=== PATIENT | female | born 1935 | race Caucasian/White ===

== ENCOUNTER 2018-02-24 20:31 | Observation (INO) | payer MEDICARE ==
[2018-02-24] MEDS ORDERED: ASPIRIN 81 MG TABLET, CHEWABLE PO ONE (20:49)
[2018-02-24 20:59] LABS: ABSOLUTE EOSINOPHILS # (AUTO) 0.3 10^3/uL (0.0-0.6); ABSOLUTE LYMPHOCYTES (AUTO) 2.4 10^3/uL (0.5-4.7); ABSOLUTE MONOCYTES (AUTO) 0.5 10^3/uL (0.1-1.4); ABSOLUTE NEUT (AUTO) 3.8 10^3/uL (1.7-8.2); BASOPHILS % (AUTO) 0.7 % (0-2); EOSINOPHILS % (AUTO) 4.5 % (0-6); HEMOGLOBIN 13.3 g/dL (12.0-15.5); LYMPHOCYTES % (AUTO) 33.4 % (13-45); MEAN CORPUSCULAR HEMOGLOBIN 34.1 pg (27.0-33.4); MEAN CORPUSCULAR HGB CONC 33.3 g/dL (32.0-36.0); MEAN CORPUSCULAR VOLUME 102 fl (80-97); MONOCYTES % (AUTO) 7.8 % (3-13); PLATELET COUNT 220 10^3/uL (150-450); SEGMENTED NEUTROPHILS % (AUTO) 53.6 % (42-78); TOTAL CELLS COUNTED % (AUTO) 100 %
--- NOTE | 2018-02-24 21:04 | ER Document Report ---
ED Cardiac - General Chief Complaint: Palpitations Stated Complaint: HEART PROBLEMS Time Seen by Provider: 02/24/18 20:52 Notes: Patient is an 83-year-old female comes emergency department for chief complaint of palpitations, she states she was sitting and reading when she started feeling her heart racing, she states she got a tingling feeling in her throat but she denies having chest pain, shortness of breath, nausea or vomiting. She denies syncope. She comes by EMS, was given 6 mg of adenosine, this converted her, she has been in sinus rhythm since her monitoring. She denies ever having this in the past, denies any cardiac history, reports history of hypertension and GERD, on Valsartan 320 mg. She denies any substance use. She denies any current symptoms. TRAVEL OUTSIDE OF THE [place] IN LAST 30 DAYS: No - Related Data Allergies/Adverse Reactions: Penicillins Allergy (Intermediate, Verified 02/25/18 02:11) Hives Sulfa (Sulfonamide Antibiotics) Allergy (Intermediate, Verified 02/25/18 02:12) Hives NSAIDS (Non-Steroidal Anti-Inflamma Adverse Reaction (Intermediate, Verified 02:13) Hives Past Medical History - General Information source: Patient - Social History Smoking Status: Never Smoker Frequency of alcohol use: None Drug Abuse: None Lives with: Family Family History: Reviewed & Not Pertinent - Past Medical History Cardiac Medical History: Reports: Hx Hypertension GI Medical History: Reports: Hx Gastroesophageal Reflux Disease - Immunizations Immunizations up to date: Yes Hx Diphtheria, Pertussis, Tetanus Vaccination: Yes Review of Systems - Review of Systems Constitutional: No symptoms reported EENT: No symptoms reported Cardiovascular: See HPI Respiratory: No symptoms reported Gastrointestinal: No symptoms reported Genitourinary: No symptoms reported Female Genitourinary: No symptoms reported Musculoskeletal: No symptoms reported Skin: No symptoms reported Hematologic/Lymphatic: No symptoms reported Neurological/Psychological: No symptoms reported Physical Exam - Vital signs Vitals: Temp 98.5 F 02/24/18 20:47 Interpretation: Normal - General General appearance: Appears well, Alert In distress: None - HEENT Head: Normocephalic, Atraumatic Eyes: Normal Pupils: PERRL - Respiratory Respiratory status: No respiratory distress Chest status: Nontender Breath sounds: Normal. No: Decreased air movement, Wheezing Chest palpation: Normal - Cardiovascular Rhythm: Regular. No: Irregularly irregular, Extrasystoles, Tachycardia Heart sounds: Normal auscultation, S1 appreciated, S2 appreciated Murmur: No Normal capillary refill: Yes - Abdominal Inspection: Normal Distension: No distension Bowel sounds: Normal Tenderness: Nontender. No: Tender, Guarding Organomegaly: No organomegaly - Back Back: Normal, Nontender - Extremities General upper extremity: Normal inspection, Nontender, Normal color, Normal ROM , Normal temperature General lower extremity: Normal inspection, Nontender, Normal color, Normal ROM , Normal temperature, Normal weight bearing. No: Chucho's sign - Neurological Neuro grossly intact: Yes Cognition: Normal Orientation: AAOx4 Bong Coma Scale Eye Opening: Spontaneous Bong Coma Scale Verbal: Oriented Bong Coma Scale Motor: Obeys Commands Bong Coma Scale Total: 15 Speech: Normal Motor strength normal: LUE, RUE, LLE, RLE Sensory: Normal - Psychological Associated symptoms: Normal affect, Normal mood - Skin Skin Temperature: Warm Skin Moisture: Dry Skin Color: Normal Course - Re-evaluation Re-evalutation: EMS reports that patient had an SVT with a rate of 198 that they were able to convert her using 6 mg of adenosine. This seems unlikely for patient at the age of 83 who has no previous history of SVT. EKG showing no T-wave inversions or ST segment changes in consecutive leads. CBC, chemistry, TSH, magnesium, and initial troponin all unremarkable. Patient has remained asymptomatic in sinus rhythm during her monitoring in the emergency department. Discussed with Dr. Nolasco, I was able to obtain the EMS EKG and there is concern for some widening and possibly patient having ventricular tachycardia based on this image. This seems more likely based on her age and described symptoms. As a result patient will be discussed with hospitalist for potential admission, discussed this with patient and family, they state agreement with this plan. Discussed with Dr. Drake, internal medicine, patient will be admitted to [facility] observation. - Vital Signs Vital signs: Temp Pulse Resp BP Pulse Ox 98.1 F 70 16 141/58 H 100 02/25/18 04:05 02/25/18 04:05 02/25/18 04:05 02/25/18 04:05 02/25/18 04:05 - Laboratory Result Diagrams: 02/24/18 20:40 02/25/18 02:47 Laboratory results interpreted by me: 02/24/18 02/24/18 20:40 20:40 MCV 102 H MCH 34.1 H RDW 16.0 H Glucose 138 H Discharge - Discharge Clinical Impression: Palpitations, Ventricular tachycardia Condition: Stable Disposition: ADMITTED OBSERVATION Admitting Provider: Hospitalist Unit Admitted: [facility]
[2018-02-24 21:09] LABS: ALANINE AMINOTRANSFERASE 27 U/L (9-52); ALBUMIN 4.4 g/dL (3.5-5.0); ALKALINE PHOSPHATASE 44 U/L (38-126); ANION GAP 11 (5-19); ASPARTATE AMINO TRANSFERASE 24 U/L (14-36); BILIRUBIN,DIRECT 0.2 mg/dL (0.0-0.4); BILIRUBIN,TOTAL 0.2 mg/dL (0.2-1.3); BLOOD UREA NITROGEN 17 mg/dL (7-20); CALCIUM 10.2 mg/dL (8.4-10.2); CARBON DIOXIDE 30 mmol/L (22-30); CHLORIDE 102 mmol/L (98-107); CREATINE KINASE 31 U/L (30-135); GLUCOSE 138 mg/dL (75-110); POTASSIUM 4.3 mmol/L (3.6-5.0); TOTAL PROTEIN 7.2 g/dL (6.3-8.2)
[2018-02-24 21:21] LABS: CREATINE KINASE MB 0.69 ng/mL (<4.55)
[2018-02-24 21:25] LABS: TROPONIN I < 0.012 ng/mL
--- NOTE | 2018-02-24 21:31 | RADIOLOGY REPORT (SQ) ---
EXAM DESCRIPTION: CHEST SINGLE VIEW COMPLETED DATE/TIME: 02/24/2018 9:09 pm REASON FOR STUDY: palpitations COMPARISON: None. EXAM PARAMETERS: NUMBER OF VIEWS: One view. TECHNIQUE: Single frontal radiographic view of the chest acquired. RADIATION DOSE: NA LIMITATIONS: None. FINDINGS: LUNGS AND PLEURA: No opacities, masses or pneumothorax. No pleural effusion. MEDIASTINUM AND HILAR STRUCTURES: No masses. Contour normal. HEART AND VASCULAR STRUCTURES: Heart normal in size. Normal vasculature. BONES: No acute findings. HARDWARE: None in the chest. OTHER: No other significant finding. IMPRESSION: NO ACUTE RADIOGRAPHIC FINDING IN THE CHEST. TECHNICAL DOCUMENTATION: JOB ID: [id number]- All Rights Reserved Reading location - IP/workstation name: [email or web address]
[2018-02-25] MEDS ORDERED: MAGNESIUM HYDROXIDE SUSP 30 ML UDCUP PO PRN (00:17)
[2018-02-25] MEDS ORDERED: ACETAMINOPHEN 325 MG TABLET PO PRN (00:17)
[2018-02-25] MEDS ORDERED: METOPROLOL TARTRATE 25 MG TABLET PO ONE ×2 (00:30→04:15)
[2018-02-25] MEDS ORDERED: THIAMINE HCL 100 MG TABLET PO ONE (03:00)
[2018-02-25 03:08] LABS: ANION GAP 10 (5-19); BLOOD UREA NITROGEN 17 mg/dL (7-20); CALCIUM 10.1 mg/dL (8.4-10.2); CARBON DIOXIDE 30 mmol/L (22-30); CHLORIDE 107 mmol/L (98-107); CREATINE KINASE 30 U/L (30-135); GLUCOSE 115 mg/dL (75-110); POTASSIUM 4.1 mmol/L (3.6-5.0); SODIUM 146.5 mmol/L (137-145)
[2018-02-25 03:19] LABS: CREATINE KINASE MB 0.64 ng/mL (<4.55); TROPONIN I 0.041 ng/mL
--- NOTE | 2018-02-25 05:38 | PDOC H&P ---
History of Present Illness Admission Date/PCP: 02/24/18 23:18 SANDOR ANGELA NP Patient complains of: Palpitations History of Present Illness: GABY STREET is a 83 year old female with a past medical history of sinusitis , GERD and hypertension. Patient presents with 30 minutes of palpitations occurring while at rest without nausea vomiting chest pain or shortness of breath. EMS was called finding a heart rate in the 180s and a rhythm strip suggesting V. tach. She receives 6 mg of adenosine resulting in conversion to normal sinus rhythm. She is brought to the emergency room for evaluation where she is found to have an unremarkable workup and referred the hospitalist for observation. Patient denies previous episode. Denies recent change in medications. With exception to Norvasc which was discontinued 8 months ago. Patient otherwise feels well. Past Medical History Cardiac Medical History: Reports: Hyperlipidema, Hypertension GI Medical History: Reports: Hiatal Hernia, Peptic Ulcer Disease Psychiatric Medical History: Denies: Depression Social History Information Source: Patient Lives with: Alone Smoking Status: Never Smoker Frequency of Alcohol Use: None Hx Recreational Drug Use: No Drugs: None Hx Prescription Drug Abuse: No - Advance Directive Resuscitation Status: Full Code Family History Family History: Hypertension Parental Family History Reviewed: Yes Children Family History Reviewed: Yes Sibling(s) Family History Reviewed.: Yes Medication/Allergy Allergies/Adverse Reactions: Penicillins Allergy (Intermediate, Verified 02/25/18 02:11) Hives Sulfa (Sulfonamide Antibiotics) Allergy (Intermediate, Verified 02/25/18 02:12) Hives NSAIDS (Non-Steroidal Anti-Inflamma Adverse Reaction (Intermediate, Verified 02:13) Hives Review of Systems Constitutional: ABSENT: chills, fever(s), headache(s), weight gain, weight loss Eyes: ABSENT: visual disturbances Ears: ABSENT: hearing changes Cardiovascular: ABSENT: chest pain, dyspnea on exertion, edema, orthropnea, palpitations Respiratory: ABSENT: cough, hemoptysis Gastrointestinal: ABSENT: abdominal pain, constipation, diarrhea, hematemesis, hematochezia, nausea, vomiting Genitourinary: ABSENT: dysuria, hematuria Musculoskeletal: ABSENT: joint swelling Integumentary: ABSENT: rash, wounds Neurological: ABSENT: abnormal gait, abnormal speech, confusion, dizziness, focal weakness, syncope Psychiatric: ABSENT: anxiety, depression, homidical ideation, suicidal ideation Endocrine: ABSENT: cold intolerance, heat intolerance, polydipsia, polyuria Hematologic/Lymphatic: ABSENT: easy bleeding, easy bruising Physical Exam Vital Signs: Temp Pulse Resp BP Pulse Ox 98.1 F 70 16 141/58 H 100 02/25/18 04:05 02/25/18 04:05 02/25/18 04:05 02/25/18 04:05 02/25/18 04:05 Intake & Output 02/23/18 02/24/18 02/25/18 11:59 11:59 11:59 Weight 48.1 kg General appearance: PRESENT: no acute distress, well-developed, well-nourished Head exam: PRESENT: atraumatic, normocephalic Eye exam: PRESENT: conjunctiva pink, EOMI, PERRLA. ABSENT: scleral icterus Ear exam: PRESENT: normal external ear exam Mouth exam: PRESENT: moist, tongue midline Neck exam: ABSENT: carotid bruit, JVD, lymphadenopathy, thyromegaly Respiratory exam: PRESENT: clear to auscultation wood. ABSENT: rales, rhonchi, wheezes Cardiovascular exam: PRESENT: RRR. ABSENT: diastolic murmur, rubs, systolic murmur Pulses: PRESENT: normal dorsalis pedis pul Vascular exam: PRESENT: normal capillary refill GI/Abdominal exam: PRESENT: normal bowel sounds, soft. ABSENT: distended, guarding, mass, organolmegaly, rebound, tenderness Rectal exam: PRESENT: deferred Extremities exam: PRESENT: full ROM. ABSENT: calf tenderness, clubbing, pedal edema Neurological exam: PRESENT: alert, awake, oriented to person, oriented to place , oriented to time, oriented to situation, CN II-XII grossly intact. ABSENT: motor sensory deficit Psychiatric exam: PRESENT: appropriate affect, normal mood. ABSENT: homicidal ideation, suicidal ideation Skin exam: PRESENT: dry, intact, warm. ABSENT: cyanosis, rash Results Laboratory Results: 02/25/18 02:47 02/25/18 02:47 Sodium 146.5 H Potassium 4.1 Chloride 107 Carbon Dioxide 30 Anion Gap 10 BUN 17 Creatinine 0.77 Est GFR ( Amer) > 60 Est GFR (Non-Af Amer) > 60 Glucose 115 H Calcium 10.1 02/25/18 02/25/18 02:47 02:47 Creatine Kinase 30 CK-MB (CK-2) 0.64 Troponin I 0.041 Impressions: Chest X-Ray 02/24/18 20:49 IMPRESSION: NO ACUTE RADIOGRAPHIC FINDING IN THE CHEST. Assessment & Plan - Diagnosis (1) Ventricular tachycardia Is this a current diagnosis for this admission?: Yes Plan: No clear precipitating event. Telemetry monitoring Lopressor initiated, follow- up cardiac enzymes, TSH and cardiology consult (2) Palpitations Is this a current diagnosis for this admission?: Yes Plan: Secondary to #1. - Time Time Spent: 30 to 50 Minutes
[2018-02-25] MEDS: HEPARIN SOD (PORCINE) 5,000 UNIT/ML 1 ML SYRINGE SUBCUT SCH ×3 (05:59→21:50)
--- NOTE | 2018-02-25 07:45 | EKG REPORT ---
SEVERITY:- OTHERWISE NORMAL ECG - SINUS RHYTHM ATRIAL PREMATURE COMPLEX : Confirmed by: Terrance Augustin MD 25-Feb-2018 07:45:22
--- NOTE | 2018-02-25 07:46 | EKG REPORT ---
SEVERITY:- ABNORMAL ECG - SINUS RHYTHM PROBABLE LEFT ATRIAL ABNORMALITY PROBABLE LEFT VENTRICULAR HYPERTROPHY : Confirmed by: Terrance Augustin MD 25-Feb-2018 07:45:39
--- NOTE | 2018-02-25 07:46 | EKG REPORT ---
SEVERITY:- OTHERWISE NORMAL ECG - SINUS RHYTHM MINIMAL ST DEPRESSION, DIFFUSE LEADS : Confirmed by: Terrance Augustin MD 25-Feb-2018 07:45:50
[2018-02-25 09:38] LABS: CREATINE KINASE MB 0.81 ng/mL (<4.55); TROPONIN I 0.037 ng/mL
[2018-02-25] MEDS ORDERED: METOPROLOL TARTRATE 25 MG TABLET PO SCH (10:00)
[2018-02-25] MEDS: DOCUSATE SODIUM 100 MG CAPSULE PO SCH (10:09)
[2018-02-25] MEDS: THIAMINE HCL 100 MG TABLET PO SCH (10:09)
[2018-02-25] MEDS ORDERED: DIAZEPAM 2 MG TABLET PO PRN (10:47)
[2018-02-25] MEDS ORDERED: VALACYCLOVIR HCL 500 MG TABLET PO ONE (12:00)
[2018-02-25] MEDS ORDERED: (PENDING PHARMACY ID) (Ketotifen Fumarate [Refresh] 1 DROP) OU SCH (14:00)
[2018-02-25] MEDS: CARBOXYMETHYLCELLULOSE SOD 0.5% 0.4 ML DROPERETTE OU SCH ×2 (14:37→18:16)
[2018-02-25 15:39] LABS: CREATINE KINASE MB 0.92 ng/mL (<4.55); TROPONIN I 0.024 ng/mL
--- NOTE | 2018-02-25 18:43 | XCELERA REPORT ---
[address] [address] Transthoracic Echocardiogram Report Name: GABY STREET Age: 83 yrs Gender: Female : 1935 Patient Status: Inpatient Patient Location: [address] [place] [address] Study Date: 02/25/2018 02:41 PM Height: 63 in Weight: 106 lb BSA: 1.5 m2 Procedure: A complete two-dimensional transthoracic echocardiogram was performed (2D, M-mode, spectral and color flow Doppler). The study was technically adequate with some images being suboptimal in quality. Reason For Study: SVT Ordering Physician: MADELEINE EATON Performed By: Declan Maria Interpretation Summary The left ventricular ejection fraction is normal. Doppler measurements suggest pseudonormalized left ventricular relaxation, which is associated with grade II/IV or mild to moderate diastolic dysfunction There is mild concentric left ventricular hypertrophy. The left ventricle is grossly normal size. Wall motion cannot be accurately commented on, but no definite regional wall motion abnormalities noted. The right ventricular systolic function is normal. The right atrium is normal in size The left atrial size is normal. There is a trace to mild amount of mitral regurgitation There is no mitral valve stenosis. There is a mild amount of aortic regurgitation There is no aortic valve stenosis There is a mild amount of tricuspid regurgitation There is mild pulmonary hypertension by echo Right ventricular systolic pressure is estimated to be elevated at 30- 40mmHg. The aortic root is not well visualized but is probably normal size. The inferior vena cava appeared normal and decreased > 50% with respiration (RAP 5-10 mmHg) There is no pericardial effusion. MMode/2D Measurements & Calculations RVDd: 2.6 cm LVIDd: 3.5 cm FS: 32.0 % Ao root diam: 3.1 cm IVSd: 0.97 cm LVIDs: 2.4 cm EDV(Teich): 50.8 ml LVPWd: 1.1 cm ESV(Teich): 19.7 ml Ao root area: 7.6 cm2 EF(Teich): 61.3 % LA dimension: 2.6 cm Doppler Measurements & Calculations MV E max fifi: MV P1/2t max fifi: Ao V2 max: AI max fifi: 63.2 cm/sec 76.6 cm/sec 159.5 cm/sec 464.8 cm/sec MV A max fifi: MV P1/2t: 62.8 msec Ao max PG: AI max P.7 cm/sec 10.2 mmHg 86.4 mmHg MV E/A: 0.82 MVA(P1/2t): 3.5 cm2 AI dec slope: MV dec slope: 357.5 cm/sec2 251.0 cm/sec2 MV dec time: AI P1/2t: 0.26 sec 542.5 msec LV V1 max PG: PA V2 max: PI end-d fifi: TR max fifi: 3.3 mmHg 70.2 cm/sec 74.2 cm/sec 256.3 cm/sec LV V1 max: PA max P.0 mmHg TR max P.0 cm/sec 26.3 mmHg Left Ventricle The left ventricle is grossly normal size. There is mild concentric left ventricular hypertrophy. The left ventricular ejection fraction is normal. Doppler measurements suggest pseudonormalized left ventricular relaxation, which is associated with grade II/IV or mild to moderate diastolic dysfunction. Wall motion cannot be accurately commented on, but no definite regional wall motion abnormalities noted. Right Ventricle The right ventricle is normal in size, thickness and function. There is normal right ventricular wall thickness. The right ventricular systolic function is normal. Atria The right atrium is normal in size. The left atrial size is normal. Interarterial septum not well visualized and not well dopplered. Cannot comment on ASD/PFO presence. Mitral Valve The mitral valve is grossly normal. There is no mitral valve stenosis. There is a trace to mild amount of mitral regurgitation. Aortic Valve The aortic valve is grossly normal. There is no aortic valve stenosis. There is a mild amount of aortic regurgitation. Tricuspid Valve The tricuspid valve is not well visualized, but is grossly normal. There is no tricuspid stenosis. There is a mild amount of tricuspid regurgitation. There is mild pulmonary hypertension by echo. Right ventricular systolic pressure is estimated to be elevated at 30-40mmHg. Pulmonic Valve The pulmonic valve is not well visualized. Great Vessels The aortic root is not well visualized but is probably normal size. The inferior vena cava appeared normal and decreased > 50% with respiration (RAP 5-10 mmHg). Effusions There is no pericardial effusion. : MADELEINE EATON > José Luis Rios
--- NOTE | 2018-02-25 20:21 | PDOC CONSULTATION ---
Consultation Consult Date: 02/25/18 Attending physician:: MADELEINE EATON Consult reason:: SVT History of Present Illness Admission Date/PCP: 02/24/18 23:18 SANDOR ANGELA NP Patient complains of: Palpitations History of Present Illness: [address]ABY ST[address] is a 83 year old female with a past medical history of sinusitis , GERD and hypertension. Patient presents with 30 minutes of palpitations occurring while at rest without nausea vomiting chest pain or shortness of breath. EMS was called finding a heart rate in the 180s and a rhythm strip suggesting V. tach. She receives 6 mg of adenosine resulting in conversion to normal sinus rhythm. She is brought to the emergency room for evaluation where she is found to have an unremarkable workup and referred the hospitalist for observation. Patient denies previous episode. Denies recent change in medications. With exception to Norvasc which was discontinued 8 months ago. Patient otherwise feels well. This history was reviewed and confirmed. 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 Past Medical History Cardiac Medical History: Reports: Hyperlipidema, Hypertension GI Medical History: Reports: Gastroesophageal Reflux Disease, Hiatal Hernia, Peptic Ulcer Disease Psychiatric Medical History: Denies: Depression Social History Information Source: Patient Lives with: Family Smoking Status: Never Smoker Frequency of Alcohol Use: None Hx Recreational Drug Use: No Drugs: None Hx Prescription Drug Abuse: No - Advance Directive Resuscitation Status: Full Code Surrogate healthcare decision maker:: Patient's granddaughter is the surrogate decision-maker. Family History Family History: Hypertension Parental Family History Reviewed: Yes Children Family History Reviewed: Yes Sibling(s) Family History Reviewed.: Yes Medication/Allergy Home Medications: Butalbital/Aspirin/Caffeine [Fiorinal 50-325-40 mg Capsule] 1 tab PO Q6HP PRN Calcium Carbonate/Vitamin D3 [Calcium 1,000 + D3 Caplet] 1 tab PO DAILY Cetirizine HCl [Zyrtec 10 mg Tablet] 10 mg PO DAILY 02/25/18 Diazepam [Valium 2 mg Tablet] 2 mg PO BIDP PRN 02/25/18 Fluticasone Propionate [Flonase Nasal [place] 50 Mcg/[place] 16 gm] 2 spray NASL DAILY 02/25/18 Ketotifen Fumarate [Refresh] 1 drop OU TID 02/25/18 Omeprazole 40 mg PO DAILY 02/25/18 Travoprost [Travatan Z] 1 drop OU QHS 02/25/18 Valacyclovir HCl [Valtrex 500 mg Tablet] 500 mg PO DAILY 02/25/18 Valsartan [Diovan] 320 mg PO DAILY 02/25/18 Allergies/Adverse Reactions: Penicillins Allergy (Intermediate, Verified 02/25/18 02:11) Hives Sulfa (Sulfonamide Antibiotics) Allergy (Intermediate, Verified 02/25/18 02:12) Hives NSAIDS (Non-Steroidal Anti-Inflamma Adverse Reaction (Intermediate, Verified 02:13) Hives Review of Systems Review of Systems: Please see history of present illness and past medical history as wall. Constitutional: No fever or chills reported. Head : No recent chronic headaches, recent head injury. Eyes: No recent eye pain, diplopia, redness, discharge, acute visual changes. Ears: No recent chronic ear pain, acute hearing loss, ear discharge. Oral cavity: No recent ulcerations, bleeding, oral cavity discomfort. Neck: No recent acute neck pain reported. Hematologic: No recent easy bruising or bleeding. Lymphatic: No recent lymph node enlargement reported. Cardiovascular system review: See history of present illness. Respiratory system review: No hemoptysis or blood clots in the lungs reported. Mild Shortness of breath on exertion Gastrointestinal system review: Negative for any recent acute hematemesis, melena. Genitourinary system review: No recent acute or chronic hematuria, flank pain, UTI etc. reported. Skin system review: Negative for any recent abnormal bruising, no rash, no pruritus reported. Neurologic: No prior history of strokes, mini strokes, seizure disorder. Psychologic: No history of major psychosis or major depression reported. Musculoskeletal: Minor aches and pains reported. No acute joint swelling reported. Endocrine: No recent polyuria, polydipsia, recent heat or cold intolerance. Physical Exam Vital Signs: Temp Pulse Resp BP Pulse Ox 97.7 F 64 18 113/47 L 97 02/25/18 19:23 02/25/18 19:23 02/25/18 19:23 02/25/18 19:23 02/25/18 19:23 Intake & Output 02/24/18 02/25/18 02/26/18 06:59 06:59 06:59 Intake Total 848 Balance 848 Weight 48.1 kg Exam: GENERAL: well-nourished and in no acute distress. Alert and oriented x3 HEAD: Atraumatic, normocephalic. EYES: Pupils equal round and reactive to light, extraocular movements intact, sclera anicteric, conjunctiva are normal. ENT: TMs normal, nares patent, oropharynx clear without exudates. Moist mucous membranes. No oral ulcerations or bleeding gums noted NECK: supple without lymphadenopathy. Trachea is central. No cervical or axillary lymphadenopathy noted. Carotids are 2+, JVD WNL LUNGS: Respiration seems nonlabored, no significant accessory muscle action noted. Breath sounds clear to auscultation bilaterally and equal noted. No wheezes rales or rhonchi noted. No significant dullness noted on percussion. CHEST: Palpation of the chest wall shows no significant chest wall tenderness. 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 ABDOMEN: Soft, no significant tenderness appreciated, normoactive bowel sounds. No guarding, no rebound. No rigidity noted . No masses appreciated. EXTREMITIES: Pedal pulses are 1-2+, no calf tenderness noted. No clubbing or cyanosis. negative pedal edema noted NEUROLOGICAL: Focused neurological exam showed no significant neurologic deficit. Normal speech, no focal weakness appreciated. PSYCH: Normal mood, normal affect. Judgment and insight within normal limits. SKIN: No significant ecchymosis, skin is noted to be warm. MUSCULOSKELETAL EXAM: No significant acute joint swelling noted. Results Laboratory Results: 02/25/18 02:47 02/25/18 02:47 Sodium 146.5 H Potassium 4.1 Chloride 107 Carbon Dioxide 30 Anion Gap 10 BUN 17 Creatinine 0.77 Est GFR ( Amer) > 60 Est GFR (Non-Af Amer) > 60 Glucose 115 H Calcium 10.1 02/25/18 02/25/18 02/25/18 02:47 02:47 08:28 Creatine Kinase 30 28 L CK-MB (CK-2) 0.64 Troponin I 0.041 02/25/18 02/25/18 02/25/18 08:28 14:50 14:50 Creatine Kinase 35 CK-MB (CK-2) 0.81 0.92 Troponin I 0.037 0.024 EKG Comments: EKG 2 reviewed. Showed sinus rhythm. No acute ST-T wave changes are noted. Impressions: Chest X-Ray 02/24/18 20:49 IMPRESSION: NO ACUTE RADIOGRAPHIC FINDING IN THE CHEST. Assessment & Plan - Diagnosis (1) Supraventricular tachycardia Is this a current diagnosis for this admission?: Yes (2) Palpitations Is this a current diagnosis for this admission?: Yes (3) Hypertension Qualifiers: Hypertension type: essential hypertension Qualified Code(s): I10 - Essential (primary) hypertension Is this a current diagnosis for this admission?: Yes (4) Hyperlipidemia Qualifiers: Hyperlipidemia type: unspecified Qualified Code(s): E78.5 - Hyperlipidemia , unspecified Is this a current diagnosis for this admission?: Yes - Notes Notes: Patient was noted to have narrow complex tachycardia at rate around 170 bpm. This was noted on EKG strips saved by the EMT. Patient also responded to IV adenosine at 6 mg. 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 Patient is likely to respond well to beta-bouchra and/or calcium channel bouchra therapy. Patient has been started with metoprolol tartrate but feel that metoprolol succinate will be a better option or Cardizem CD at 120 mg p.o. daily. Review of medication chart shows that patient has not been given metoprolol tartrate and the nurses have been holding it for unknown reason. I believe that beta-bouchra does not really cause much of hypotension at this low dose therefore they should give it to the patient. If hypotension does occur, patient can give IV fluid bolus. Alternative would be to add digoxin to the regimen. Palpitations: Secondary to SVT. Recommend that electrolytes be maintained within normal limit. Hypertension: Currently in hospital blood pressure on the low side. Antihypertensive being held. Will start patient on beta-bouchra. Hyperlipidemia: Currently stable. Continue home antilipid regimen. - Time Time Spent: 30 to 50 Minutes - CODE STATUS was discussed, patient remains full code. Surrogate decision-maker patient's granddaughter. Multiple medical problems were addressed. More than 50% of the time spent coordinating care, discussing management plans with involved caregivers. Management plans discussed with involved personnels. Medical decision making was of moderate to high complexity, patient's has multiple comorbidities. Medications reviewed and adjusted accordingly: Yes
[2018-02-25] MEDS ORDERED: (PENDING PHARMACY ID) (Travoprost [Travatan Z] 1 DROP) OU SCH (22:00)
[2018-02-25] MEDS ORDERED: LATANOPROST 0.005% OPH SOLN 2.5 ML OU SCH (22:00)
[2018-02-26] MEDS ORDERED: LANSOPRAZOLE 30 MG TAB.RAP.DR PO SCH (06:00)
[2018-02-26] MEDS: HEPARIN SOD (PORCINE) 5,000 UNIT/ML 1 ML SYRINGE SUBCUT SCH ×2 (06:21→15:29)
[2018-02-26] MEDS: METOPROLOL SUCCINATE 25 MG TAB.SR.24H PO SCH ×2 (06:24→10:10)
[2018-02-26] MEDS ORDERED: CETIRIZINE 10 MG TABLET PO SCH (10:00)
[2018-02-26] MEDS ORDERED: FLUTICASONE NASAL SPRAY 50 MCG/SPRY 120 SPRAY/16 GM NASL SCH (10:00)
[2018-02-26] MEDS ORDERED: VALACYCLOVIR HCL 500 MG TABLET PO SCH (10:00)
[2018-02-26] MEDS ORDERED: CALCIUM CARBONATE 250 MG/VITAMIN D3 125 UNIT TABLET PO SCH (10:00)
[2018-02-26] MEDS ORDERED: CALCIUM CARBONATE PO SCH (10:00)
[2018-02-26] MEDS ORDERED: VITAMIN D3 PO SCH (10:00)
[2018-02-26] MEDS: CARBOXYMETHYLCELLULOSE SOD 0.5% 0.4 ML DROPERETTE OU SCH ×2 (10:08→15:33)
[2018-02-26] MEDS: DOCUSATE SODIUM 100 MG CAPSULE PO SCH (10:09)
[2018-02-26] MEDS: THIAMINE HCL 100 MG TABLET PO SCH (10:09)
--- NOTE | 2018-02-26 10:39 | PDOC PROGRESS REPORT ---
Subjective Progress Note for:: 02/26/18 Subjective:: Patient has been mostly normotensive with blood pressure on the lower side but patient does have a history of hypertension. This morning blood pressure was noted to be high. Last night patient did not receive metoprolol succinate as her heart rate was noted to be low in the 50s. Patient was uncomfortable taking it. It is not clear as to the circumstances when her heart rate was noted to be low. With the patient was sleeping or awake is not clear. Patient however did not have recurrence of the tachyarrhythmia. Reason For Visit: SVT Physical Exam Vital Signs: Temp Pulse Resp BP Pulse Ox 98.2 F 66 14 167/62 H 97 02/26/18 07:43 02/26/18 07:43 02/26/18 07:43 02/26/18 07:43 02/26/18 07:43 Intake & Output 02/25/18 02/26/18 02/27/18 06:59 06:59 06:59 Intake Total 853 Balance 853 Weight 48.1 kg 48.6 kg Exam: GENERAL: well-nourished and in no acute distress. Alert and oriented x3 HEAD: Atraumatic, normocephalic. EYES: Pupils equal round and reactive to light, extraocular movements intact, sclera anicteric, conjunctiva are normal. ENT: TMs normal, nares patent, oropharynx clear without exudates. Moist mucous membranes. No oral ulcerations or bleeding gums noted NECK: supple without lymphadenopathy. Trachea is central. No cervical or axillary lymphadenopathy noted. Carotids are 2+, JVD WNL LUNGS: Respiration seems nonlabored, no significant accessory muscle action noted. Breath sounds clear to auscultation bilaterally and equal noted. No wheezes rales or rhonchi noted. No significant dullness noted on percussion. CHEST: Palpation of the chest wall shows no significant chest wall tenderness. 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 ABDOMEN: Soft, no significant tenderness appreciated, normoactive bowel sounds. No guarding, no rebound. No rigidity noted . No masses appreciated. EXTREMITIES: Pedal pulses are 1-2+, no calf tenderness noted. No clubbing or cyanosis. negative pedal edema noted NEUROLOGICAL: Focused neurological exam showed no significant neurologic deficit. Normal speech, no focal weakness appreciated. PSYCH: Normal mood, normal affect. Judgment and insight within normal limits. SKIN: No significant ecchymosis, skin is noted to be warm. MUSCULOSKELETAL EXAM: No significant acute joint swelling noted. Results Laboratory Results: 02/25/18 02:47 02/25/18 02/25/18 02/25/18 02:47 02:47 08:28 Creatine Kinase 30 28 L CK-MB (CK-2) 0.64 Troponin I 0.041 02/25/18 02/25/18 02/25/18 08:28 14:50 14:50 Creatine Kinase 35 CK-MB (CK-2) 0.81 0.92 Troponin I 0.037 0.024 EKG Comments: Telemetry strip shows sinus rhythm with mild sinus bradycardia but all the strips are showing to be with heart rate above 50. Impressions: Chest X-Ray 02/24/18 20:49 IMPRESSION: NO ACUTE RADIOGRAPHIC FINDING IN THE CHEST. Assessment & Plan - Diagnosis (1) Supraventricular tachycardia Is this a current diagnosis for this admission?: Yes (2) Palpitations Is this a current diagnosis for this admission?: Yes (3) Hypertension Qualifiers: Hypertension type: essential hypertension Qualified Code(s): I10 - Essential (primary) hypertension Is this a current diagnosis for this admission?: Yes (4) Hyperlipidemia Qualifiers: Hyperlipidemia type: unspecified Qualified Code(s): E78.5 - Hyperlipidemia , unspecified Is this a current diagnosis for this admission?: Yes (5) Bradycardia Is this a current diagnosis for this admission?: Yes - Notes Notes: Patient presented with SVT, narrow complex, responded to adenosine. At this point feel beta-blockers at the best option and will be given this morning. Patient will benefit from close monitoring with a cardiac event monitor as an outpatient to make sure that patient does not have any significant bradycardia. In that case patient may end up needing either ablation or pacemaker placement. Patient advised to make an appointment with my office for cardiac event monitor and also close cardiology follow-up. This was discussed with patient is a granddaughter and Dr. Cates. Patient was noted to have narrow complex tachycardia at rate around 170 bpm. This was noted on EKG strips saved by the EMT. Patient also responded to IV adenosine at 6 mg. 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 Patient is likely to respond well to beta-bouchra and/or calcium channel bouchra therapy. Patient has been started with metoprolol tartrate but feel that metoprolol succinate will be a better option or Cardizem CD at 120 mg p.o. daily. Review of medication chart shows that patient has not been given metoprolol tartrate and the nurses have been holding it for unknown reason. I believe that beta-bouchra does not really cause much of hypotension at this low dose therefore they should give it to the patient. If hypotension does occur, patient can give IV fluid bolus. Alternative would be to add digoxin to the regimen. Palpitations: Secondary to SVT. Recommend that electrolytes be maintained within normal limit. Hypertension: Currently in hospital blood pressure on the low side. Antihypertensive being held. Will start patient on beta-bouchra. Hyperlipidemia: Currently stable. Continue home antilipid regimen. Bradycardia: Mild. Blood pressure up this morning. Patient was therefore given metoprolol succinate 25 mg p.o. and will observe patient until this afternoon. If patient remains stable, could be discharged with close cardiology follow-up as an outpatient. - Time Time with patient: Greater than 35 minutes - CODE STATUS was discussed, patient remains full code. Surrogate decision-maker patient is a granddaughter. Multiple medical problems were addressed. More than 50% of the time spent coordinating care, discussing management plans with involved caregivers. Management plans discussed with involved personnels. Medical decision making was of moderate to high complexity, patient's has multiple comorbidities. Medications reviewed and adjusted accordingly: Yes
[2018-02-26 16:03] VITALS: BP 132/57
--- NOTE | 2018-02-26 16:06 | PDOC DISCHARGE SUMMARY ---
General - Admit/Disc Date/PCP Admission Date/Primary Care Provider: 02/24/18 23:18 SANDOR ANGELA NP Discharge Date: 02/26/18 - Discharge Diagnosis (1) Supraventricular tachycardia Is this a current diagnosis for this admission?: Yes Summary: Heart rates up to 180 on presentation. She had a adenosine in the field with spiritism of sinus rhythm. She was empirically started on metoprolol, an echocardiogram was done, and cardiology was consulted. She has maintained sinus rhythm since admission. Echocardiogram showed a normal left ventricular function, mild diastolic dysfunction, and no valvular abnormality. Cardiology felt that because of her response to adenosine that she has AVNRT. She refused to take the amount of Lopressor originally prescribed, so I will send her out on a lower dose, which she is agreed to. Her blood pressure is a little high, but I think that can reasonably be adjusted as an outpatient either by adjusting her metoprolol, or by reinstituting losartan at a reduced dose. (2) Hypertension Is this a current diagnosis for this admission?: Yes Summary: Medications were adjusted this admission and will probably need to be adjusted further as an outpatient. - Additional Information Resuscitation Status: Full Code Discharge Diet: Regular Discharge Activity: Activity As Tolerated Prescriptions: Metoprolol Succinate [Toprol Xl 25 mg Tab.sr] 25 mg PO DAILY #30 tab.sr.24h Home Medications: Butalbital/Aspirin/Caffeine [Fiorinal 50-325-40 mg Capsule] 1 tab PO Q6HP PRN Calcium Carbonate/Vitamin D3 [Calcium 1,000 + D3 Caplet] 1 tab PO DAILY Cetirizine HCl [Zyrtec 10 mg Tablet] 10 mg PO DAILY 02/25/18 Diazepam [Valium 2 mg Tablet] 2 mg PO BIDP PRN 02/25/18 Fluticasone Propionate [Flonase Nasal [place] 50 Mcg/[place] 16 gm] 2 spray NASL DAILY 02/25/18 Ketotifen Fumarate [Refresh] 1 drop OU TID 02/25/18 Omeprazole 40 mg PO DAILY 02/25/18 Travoprost [Travatan Z] 1 drop OU QHS 02/25/18 Valacyclovir HCl [Valtrex 500 mg Tablet] 500 mg PO DAILY 02/25/18 Metoprolol Succinate [Toprol Xl 25 mg Tab.sr] 25 mg PO DAILY #30 tab.sr.24h History of Present Illness Patient complains of: Palpitations History of Present Illness: GABY ST[address] is a 83 year old female with a past medical history of sinusitis , GERD and hypertension. Patient presents with 30 minutes of palpitations occurring while at rest without nausea vomiting chest pain or shortness of breath. EMS was called finding a heart rate in the 180s and a rhythm strip suggesting V. tach. She receives 6 mg of adenosine resulting in conversion to normal sinus rhythm. She is brought to the emergency room for evaluation where she is found to have an unremarkable workup and referred the hospitalist for observation. Patient denies previous episode. Denies recent change in medications. With exception to Norvasc which was discontinued 8 months ago. Patient otherwise feels well. Hospital Course Hospital Course: She was monitored on telemetry, started on empiric Lopressor, and cardiology was consulted. She has maintained sinus rhythm since admission. 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 Unclear what triggered her SVT at this time. In any case she is tolerating a low dose of extended release metoprolol, her blood pressure is a little elevated, but nothing concerning. She is very resistant to an increased dose for her own reasons. I think her primary care provider can adjust this as an outpatient. Physical Exam Vital Signs: Temp Pulse Resp BP Pulse Ox 97.9 F 73 14 153/63 H 97 02/26/18 15:14 02/26/18 15:14 02/26/18 15:14 02/26/18 15:14 02/26/18 15:14 Intake & Output 02/25/18 02/26/18 02/27/18 05:59 05:59 05:59 Intake Total 853 118 Balance 853 118 Weight 106 lb 0.677 oz 107 lb 2.314 oz General appearance: PRESENT: no acute distress Neck exam: ABSENT: JVD Respiratory exam: PRESENT: clear to auscultation wood Cardiovascular exam: PRESENT: RRR GI/Abdominal exam: PRESENT: soft Extremities exam: ABSENT: +1 edema Musculoskeletal exam: PRESENT: normal inspection Neurological exam: PRESENT: alert Psychiatric exam: PRESENT: appropriate affect Skin exam: PRESENT: warm Results Laboratory Results: 02/25/18 02:47 02/25/18 02/25/18 02/25/18 02:47 02:47 08:28 Creatine Kinase 30 28 L CK-MB (CK-2) 0.64 Troponin I 0.041 02/25/18 02/25/18 02/25/18 08:28 14:50 14:50 Creatine Kinase 35 CK-MB (CK-2) 0.81 0.92 Troponin I 0.037 0.024 Impressions: Chest X-Ray 02/24/18 20:49 IMPRESSION: NO ACUTE RADIOGRAPHIC FINDING IN THE CHEST. Qualifiers - * PATIENT BEING DISCHARGED WITH ANY OF THE FOLLOWING DIAGNOSIS: No
== END 2018-02-26 16:40 | disposition home or self-care (01) ==
LOC: ER 20:31 → EH 23:18 → 3S 02-25 00:59
PROVIDERS: ADMIT Internal Medicine; ATTEND Internal Medicine
DX: I47.1 Supraventricular tachycardia (principal); I10 Essential (primary) hypertension; K21.9 Gastro-esophageal reflux disease without esophagitis; E78.5 Hyperlipidemia, unspecified; R00.1 Bradycardia, unspecified; Z79.899 Other long term (current) drug therapy; Z82.49 Family history of ischemic heart disease and other diseases of the circulatory system
CPT/HCPCS: 93005 ×2; 99285; 36415 ×2; 82553 ×2; 82550 ×2; 83735; 84443; 85025; 80048; 80053; 84484 ×2; 93306; 71045; 93010 ×2; G0378 ×3; A9270 ×12; J1644 ×2; J3490